=== PATIENT | female | born 2000 | race Caucasian/White ===

== ENCOUNTER 2019-05-24 00:37 | Inpatient (IN) | payer SELFPAY ==
[2019-05-24] VITALS (215 sets, daily range): BP systolic 95–107; BP diastolic 55–73; PULSE 80–100; TEMP 98.2–100.1; O2SAT 87–100
[~2019-05-24] VITALS: Ht 172.7 cm; Wt 99.3 kg
[2019-05-24] MEDS ORDERED: FLEXERIL 1010 MG/TAB PO (00:49)
[2019-05-24] MEDS ORDERED: ZTLIDO1 EACH TP (00:49)
[2019-05-24] MEDS ORDERED: IBU800 M1 PO (00:50)
[2019-05-24] MEDS ORDERED: TRI-SPRINTEC 281 TAB PO (00:51)
[2019-05-24] MEDS ORDERED: LEVAQUIN 5500 MG/TA1 PO (00:51)
[2019-05-24 01:13] LABS: COLLECTION METHOD CLEAN CATCH
[2019-05-24 01:19] LABS: MUCOUS Present /lpf; PH 8 (5-8); SQUAMOUS EPITHELIAL 0-2 /hpf; URINE APPEARANCE Clear; URINE BACTERIA Rare /hpf; URINE BILIRUBIN Negative (NEGATIVE); URINE BLOOD Negative (NEGATIVE); URINE COLOR Yellow; URINE GLUCOSE Negative (NEGATIVE); URINE KETONE Negative (NEGATIVE); URINE LEUKOCYTE ESTERASE Negative (NEGATIVE); URINE NITRATE Negative (NEGATIVE); URINE PROTEIN(semi-quant) Negative (NEGATIVE)
[2019-05-24 01:37] LABS: BASO % 0.2 % (0.0-2.0); EOS % 0.1 % (0-4.0); GRAN # 10.5 (1.4-6.5); GRAN % 74.8 % (42.2-75.2); HEMATOCRIT 40.1 % (35.0-45.0); HEMOGLOBIN 13.6 g/dl (12.0-15.0); LYMPH # 2.2 (1.2-3.4); LYMPH % 15.5 % (20.0-51.0); MEAN CELL VOLUME 90 fl (80.0-95.0); MEAN CORPUSCULAR HEMOGLOBIN 31 pg (26.0-32.0); MEAN CORPUSCULAR HGB CONC 34 g/dl (33.0-37.0); MONO # 1.3 (0.1-0.6); PLATELET COUNT 263 K/mm3 (130-400); RED BLOOD COUNT 4.44 M/mm3 (4.10-5.30); REDCELL DISTRIBUTION WIDTH-CV 12.8 % (11.5-14.5)
[2019-05-24 01:48] LABS: ALBUMIN 4.4 gm/dL (3.5-5.0); BILIRUBIN,TOTAL 0.8 mg/dL (0.0-1.0); CALCIUM 9.5 mg/dL (8.4-10.2); CREATININE, serum 0.78 (0.52-1.25); POTASSIUM 3.8 mmol/L (3.4-5.0)
--- NOTE | 2019-05-24 08:00 | NUR ---
RECEIVED REPORT FROM ED NURSEHARDIK.
--- NOTE | 2019-05-24 08:20 | NUR ---
PATIENT ARRIVED TO ICU ROOM 4 VIA ED STRETCHER. PATIENT AMBULATED TO THE BED. VITALS WERE OBTAINED AND WERE WITHIN NORMAL LIMITS. PATIENT'S SKIN WAS ASSESSED. NO SKIN ISSUES OBSERVED. PATIENT'S HEIGHT AND WEIGHT OBTAINED. PATIENT REPORTS HEAD AND NECK PAIN 7/10, DESCRIBED PRESSURE SENSATION.
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
--- NOTE | 2019-05-24 14:06 | NUR ---
REPORT CALLED TO RECEIVING MEDICAL NURSEFELA.
--- NOTE | 2019-05-24 14:48 | NUR ---
PATIENT TRANSFERRED TO MEDICAL ROOM 314. PATIENT AMBULATED TO THE BED. RESUMED NS AT 75 ML/HOUR. MADE CONTACT WITH RECEIVING NURSE, FELA. CARE TRANSFERRED AT THIS TIME.
--- NOTE | 2019-05-24 14:59 | NUR ---
Pt arrives to medical floor rm 314 from ICU via WC accompanied by Mei RN. Pt awake and alert, oriented x 4. Physical assessment unremarkable. Pt reports slight headache pressure, requests to rest. IVF's infusing per orders through right AC site without s/s of complications. Water provided per request. No further needs reported. Call light in reach.
--- NOTE | 2019-05-24 18:00 | NUR ---
Pt sitting up in bed, reports pain to head, requesting medication which is administered per orders. IVF's continue infusing, no s/s of complications. Call light in reach.
--- NOTE | 2019-05-24 19:30 | NUR ---
Initial shift assessment done-- states feeling warm- taking off covers- will turn down heat in room- denies pain- has been resting, no requests.
[2019-05-25 03:51] VITALS: BP 102/49; PULSE 100; TEMP 101.1
[2019-05-25 06:04] LABS: BASO % 0.3 % (0.0-2.0); EOS % 0.2 % (0-4.0); GRAN # 6.4 (1.4-6.5); GRAN % 67.8 % (42.2-75.2); LYMPH % 21.6 % (20.0-51.0); MEAN CELL VOLUME 92 fl (80.0-95.0); MEAN CORPUSCULAR HGB CONC 33 g/dl (33.0-37.0); MEAN PLATELET VOLUME 9.3 fl (7.4-10.4); MONO # 0.9 (0.1-0.6); MONO % 9.8 % (1.7-9.3); PLATELET COUNT 203 K/mm3 (130-400); RED BLOOD COUNT 3.53 M/mm3 (4.10-5.30); REDCELL DISTRIBUTION WIDTH-CV 12.9 % (11.5-14.5)
[2019-05-25 06:05] LABS: HEMATOCRIT 32.3 % (35.0-45.0); HEMOGLOBIN 10.7 g/dl (12.0-15.0); MEAN CORPUSCULAR HEMOGLOBIN 30 pg (26.0-32.0)
[2019-05-25 06:21] LABS: CALCIUM 8.3 mg/dL (8.4-10.2); CREATININE, serum 0.59 (0.52-1.25); POTASSIUM 3.6 mmol/L (3.4-5.0)
--- NOTE | 2019-05-25 06:21 | NUR ---
Temp up to 101.1 , has been getting Tylenol every 4 hours for headache , IV fluids of NS at 75cc/hr
[2019-05-25 07:52] VITALS: BP 96/56; PULSE 81; TEMP 98.9
--- NOTE | 2019-05-25 10:36 | NUR ---
First visit from the entry level financial analyst. No needs right now.
[2019-05-25 10:58] VITALS: BP 100/55; PULSE 83; TEMP 98.3
--- NOTE | 2019-05-25 12:53 | NUR ---
PT RECIEVED ONE TIME ORDER FOR REGLAN AND BENDRYL THIS AM TO HELP WITH HEADACHE. PT STATED THAT IT HELPED HER SLEEP, THE HEADACHE REMAINS BUT IS SOMEWHAT BETTER. STATED THAT WHEN SHE GOT UP TO SHE GOT UP TO USE THE BATHROOM SHE NOTICED IT WAS STILL THERE BUT IT WASNT A POUNDING HEADACHE NO MORE.
[2019-05-25 16:16] VITALS: BP 92/64; PULSE 61; TEMP 98.1
--- NOTE | 2019-05-25 17:35 | NUR ---
PT HAD C/O HEADACHE THIS AM, PT STATED THAT SHE GETS HEADACHES PRETTY REGULARLY. REGLAN AND BENADRYL WHERE ORDERED AND ADMINISTERED SO PT WAS ABLE TO GET SOME RELIEF. PT STATED HER HEAD WAS THROBBING WITHOUT MUCH MOVEMENT AND WAS SENSITIVE TO SOUND AND LIGHT. MEDS WHERE GIVEN AND PT STATED THAT SHE WAS MUCH BETTER, STILL NEEDED A LATER DOSE OF TYLENOL. NO NOTED FEVERS THIS SHIFT. STOOL SAMPLE ORDERED DUE TO PT STATING SHES BEEN HAVING MORE LOOSE STOOLS THEN NORMAL, SAMPLE WAS COLLECTED AND SENT TO LAB. IV FLUIDS INFUSING WITHOUT ISSUE. FAMILY INTO SEE PT THIS AFTERNOON. PT STATED THAT SHE DOESNT HAVE MUCH OF APPETITE TODAY BUT OTHERWISE TOLLERATED DIET. NO OTHER C/O THIS SHIFT.
[2019-05-25 19:32] VITALS: BP 104/72; PULSE 61; TEMP 98
[2019-05-25 23:21] VITALS: BP 125/72; PULSE 71; TEMP 98.6
[2019-05-26 03:45] VITALS: BP 117/57; PULSE 83; TEMP 98.4
[2019-05-26 06:13] LABS: BASO % 0.6 % (0.0-2.0); EOS # 0.1 (0.0-0.7); EOS % 1.4 % (0-4.0); GRAN # 3.3 (1.4-6.5); GRAN % 52.3 % (42.2-75.2); HEMOGLOBIN 10.8 g/dl (12.0-15.0); LYMPH # 2.3 (1.2-3.4); LYMPH % 36.7 % (20.0-51.0); MEAN CELL VOLUME 92 fl (80.0-95.0); MEAN CORPUSCULAR HEMOGLOBIN 30 pg (26.0-32.0); MEAN CORPUSCULAR HGB CONC 33 g/dl (33.0-37.0); MEAN PLATELET VOLUME 9.8 fl (7.4-10.4); MONO # 0.6 (0.1-0.6); MONO % 8.8 % (1.7-9.3); PLATELET COUNT 196 K/mm3 (130-400); RED BLOOD COUNT 3.56 M/mm3 (4.10-5.30); REDCELL DISTRIBUTION WIDTH-CV 12.8 % (11.5-14.5)
[2019-05-26 06:14] LABS: HEMATOCRIT 32.6 % (35.0-45.0)
[2019-05-26 06:26] LABS: CALCIUM 8.6 mg/dL (8.4-10.2); CREATININE, serum 0.54 (0.52-1.25); POTASSIUM 3.7 mmol/L (3.4-5.0)
[2019-05-26 07:28] VITALS: BP 103/58; PULSE 57; TEMP 98.2
[2019-05-26] MEDS ORDERED: BACTRIM DS 8001 TAB PO (09:29)
--- NOTE | 2019-05-26 12:20 | NUR ---
PT DISCHARGE PAPERWORK DONE. PT SLEPT IN, AWAKE AT THIS TIME. PROVIDED DISCHARGE EDUCATION, REMOVED IV. PT WAS UNABLE TO FIND HER SANDLES, STATED LAST TIME SHE REMEMBERED SEEING THEM SHE WAS IN ICU AND ABOUT TO COME UP TO THE FLOOR, WOULD LIKE TO BE CALLED IF WE FIND THEM. SIGNATURES OBTAINED. NO QUESTIONS VOICED.
--- NOTE | 2019-05-26 12:40 | NUR ---
PT ESCORTED OUT OF FACILITY VIA W/C, SINCE UNABLE TO FIND SHOES SHE USED W/C. SIGNNIFICANT OTHER ACCOMPANIED AND DROVE HER HOME.
== END 2019-05-26 12:40 | disposition home or self-care (01) | DRG 872 ==
LOC: COL.ER 00:37 → MEDICAL 06:40 → ICU 06:40 → MEDICAL 14:52
PROVIDERS: Emergency Medicine; Physician Assistant; ADMIT Student in an Organized Health Care Education/Training Program
DX: A41.9 Sepsis, unspecified organism (principal); N10 Acute pyelonephritis; F17.210 Nicotine dependence, cigarettes, uncomplicated; R19.7 Diarrhea, unspecified; R51 Headache
CPT/HCPCS: 99231-AI; 99239; A4216; J0696; J1200; J1650; J1885; J2405; J2765; J3010; J7030; Q9967

== ENCOUNTER 2019-11-22 17:48 | Emergency (ER) | payer MEDICAID ==
[~2019-11-22] VITALS: Ht 172.7 cm; Wt 86.4 kg
[~2019-11-22 17:48] MED LIST: BACTRIM DS 8001 TAB PO; FLEXERIL 1010 MG/TAB PO; IBU800 M1 PO; LEVAQUIN 5500 MG/TA1 PO; TRI-SPRINTEC 281 TAB PO; ZTLIDO1 EACH TP
[2019-11-22 17:56] VITALS: TEMP 98.4
[2019-11-22 18:41] LABS: BASO # 0.1 (0.0-0.2); BASO % 0.6 % (0.0-2.0); EOS # 0.1 (0.0-0.7); GRAN # 5.9 (1.4-6.5); HEMATOCRIT 39.3 % (35.0-45.0); HEMOGLOBIN 12.8 g/dl (12.0-15.0); LYMPH # 3.4 (1.2-3.4); LYMPH % 33.5 % (20.0-51.0); MEAN CELL VOLUME 91 fl (80.0-95.0); MEAN CORPUSCULAR HEMOGLOBIN 30 pg (26.0-32.0); MEAN CORPUSCULAR HGB CONC 33 g/dl (33.0-37.0); MEAN PLATELET VOLUME 8.9 fl (7.4-10.4); MONO # 0.7 (0.1-0.6); MONO % 6.6 % (1.7-9.3); PLATELET COUNT 345 K/mm3 (130-400); RED BLOOD COUNT 4.31 M/mm3 (4.10-5.30); REDCELL DISTRIBUTION WIDTH-CV 13.1 % (11.5-14.5)
[2019-11-22 18:50] LABS: ALANINE AMINOTRANSFERASE 31 U/L (9-52); ALBUMIN 4.4 gm/dL (3.5-5.0); ALKALINE PHOSPHATASE 75 U/L (50-136); ANION GAP 11 mmol/L (7-16); AST,SGOT 31 U/L (15-37); BILIRUBIN,TOTAL 0.2 mg/dL (0.0-1.0); BLOOD UREA NITROGEN 12 mg/dL (7-17); CALCIUM 9.5 mg/dL (8.4-10.2); CARBON DIOXIDE 23 mmol/L (22-30); CHLORIDE 107 mmol/L (98-107); CREATININE, serum 0.62 (0.52-1.25); GLUCOSE 92 mg/dL (74-106); SODIUM 141 mmol/L (137-145); TOTAL PROTEIN 8.2 gm/dL (6.4-8.2)
[2019-11-22 19:18] LABS: HCG,QUANTITATIVE < 2 mIU/mL (0-5)
[2019-11-22] MEDS ORDERED: ZOFRAN ODT4 MG PO (20:04)
[2019-11-22] MEDS ORDERED: NORCO 325 MG-51 TAB PO (20:04)
[2019-11-22 20:32] VITALS: BP 131/78; PULSE 88
== END 2019-11-22 21:06 | disposition home or self-care (01) ==
LOC: COL.ER 17:48
PROVIDERS: Emergency Medicine
DX: O03.9 Complete or unspecified spontaneous abortion without complication (principal); Z87.891 Personal history of nicotine dependence; Z90.49 Acquired absence of other specified parts of digestive tract
CPT/HCPCS: J2405; J2550; J2791; J7030

== ENCOUNTER 2019-12-02 23:44 | Emergency (ER) | payer MEDICAID ==
[~2019-12-02] VITALS: Ht 172.7 cm; Wt 107.3 kg
[~2019-12-02 23:44] MED LIST changes: +NORCO 325 MG-51 TAB PO; +ZOFRAN ODT4 MG PO
[2019-12-03 00:22] LABS: BASO # 0.1 (0.0-0.2); BASO % 0.8 % (0.0-2.0); EOS # 0.1 (0.0-0.7); EOS % 0.9 % (0-4.0); GRAN # 4.4 (1.4-6.5); GRAN % 65.7 % (42.2-75.2); HEMATOCRIT 38.6 % (35.0-45.0); HEMOGLOBIN 12.6 g/dl (12.0-15.0); LYMPH # 1.4 (1.2-3.4); LYMPH % 20.7 % (20.0-51.0); MEAN CELL VOLUME 91 fl (80.0-95.0); MEAN CORPUSCULAR HEMOGLOBIN 30 pg (26.0-32.0); MEAN CORPUSCULAR HGB CONC 33 g/dl (33.0-37.0); MONO # 0.8 (0.1-0.6); MONO % 11.6 % (1.7-9.3); PLATELET COUNT 305 K/mm3 (130-400); RED BLOOD COUNT 4.26 M/mm3 (4.10-5.30); REDCELL DISTRIBUTION WIDTH-CV 13.2 % (11.5-14.5)
[2019-12-03 00:33] LABS: ALANINE AMINOTRANSFERASE 42 U/L (9-52); ALBUMIN 4.5 gm/dL (3.5-5.0); ALKALINE PHOSPHATASE 78 U/L (50-136); ANION GAP 12 mmol/L (7-16); AST,SGOT 29 U/L (15-37); BILIRUBIN,TOTAL 0.2 mg/dL (0.0-1.0); BLOOD UREA NITROGEN 8 mg/dL (7-17); CALCIUM 9.2 mg/dL (8.4-10.2); CARBON DIOXIDE 24 mmol/L (22-30); CHLORIDE 105 mmol/L (98-107); CREATININE, serum 0.61 (0.52-1.25); GLUCOSE 110 mg/dL (74-106); POTASSIUM 3.7 mmol/L (3.4-5.0); SODIUM 141 mmol/L (137-145); TOTAL PROTEIN 8.2 gm/dL (6.4-8.2)
[2019-12-03 00:46] LABS: C-REACTIVE PROTEIN 2.3 mg/dL (0.0-0.9)
[2019-12-03 00:51] LABS: HCG,QUANTITATIVE < 2 mIU/mL (0-5)
[2019-12-03 01:50] LABS: COLLECTION METHOD CLEAN CATCH
[2019-12-03 01:57] LABS: MUCOUS Present /lpf; PH 7 (5-8); URINE APPEARANCE Cloudy; URINE BACTERIA Rare /hpf; URINE BILIRUBIN Negative (NEGATIVE); URINE BLOOD Negative (NEGATIVE); URINE COLOR Yellow; URINE GLUCOSE Negative (NEGATIVE); URINE KETONE Negative (NEGATIVE); URINE LEUKOCYTE ESTERASE Negative (NEGATIVE); URINE NITRATE Negative (NEGATIVE); URINE PROTEIN(semi-quant) Negative (NEGATIVE)
[2019-12-03 03:22] VITALS: BP 101/66; PULSE 86; TEMP 98.9
== END 2019-12-03 03:24 | disposition home or self-care (01) ==
LOC: COL.ER 23:44
PROVIDERS: Nurse Practitioner
DX: J10.1 Influenza due to other identified influenza virus with other respiratory manifestations (principal); Z87.891 Personal history of nicotine dependence; Z90.89 Acquired absence of other organs
CPT/HCPCS: J1200; J1885; J2550; J2765; J7030